=== PATIENT | female | born 1965 | race Caucasian/White ===

== ENCOUNTER 2020-10-03 18:12 | Observation (INO) | payer BC ==
[2020-10-03] MEDS ORDERED: ASPIRIN EC 81 MG TAB PO ONE (20:43)
[2020-10-03 20:47] VITALS: BMI 36.3
[2020-10-03] MEDS ORDERED: FAMOTIDINE 20 MG TAB PO SCH (21:00)
[2020-10-03] MEDS: METOPROLOL TAR 50 MG TAB PO SCH (21:00)
[2020-10-04 00:12] LABS: Absolute Lymphocytes (CBC) 2.5 K/uL (0.7-4.9); Basophils % 1.2 % (0-1.3); Hematocrit 36.5 % (36.0-45.0); Lymphocytes % 35.4 % (15.3-44.8); MPV 8.3 fL (7.6-11.3); RBC Red Blood Cell Count 4.42 M/uL (3.86-4.86)
[2020-10-04 00:34] LABS: ALT/SGPT 22 U/L (12-78); AST/SGOT 12 U/L (15-37); Albumin 3.6 g/dL (3.4-5.0); Alkaline Phosphatase 90 U/L (45-117); BUN Blood Urea Nitrogen 12 mg/dL (7-18); Bicarbonate 28 mmol/L (21-32); Bilirubin Total 0.4 mg/dL (0.2-1.0); CKMB Creatine Kinase MB < 1.0 ng/mL (0.3-3.6); Creatine Phosphokinase 86 U/L (26-192); Glucose Level 108 mg/dL (74-106); Magnesium 2.1 mg/dL (1.8-2.4); Potassium 3.7 mmol/L (3.5-5.1); Protein, Total 7.2 g/dL (6.4-8.2); Sodium Level 140 mmol/L (136-145); Troponin I < 0.02 ng/mL (0.0-0.045)
--- NOTE | 2020-10-04 03:00 | HP ---
Date of Admission: 10/03/2020 Chief Complaint: Chest pain. History Of Present Illness: This is a 55-year-old pleasant female, who came into office today with complaints of chest pain. The patient reports that about 3 weeks ago as she was trying to go to sleep, she woke up from her sleep, found her not breathing and trying to catch her breath, and then she felt like some pressure type feeling as if someone was sitting on her chest. This chest pressure type of feeling lasted for several hours and then no more symptoms until 2 days ago and in last 2 days, she is having chest pressure type of feeling again in the upper center of her chest. It is intermittent. The patient is not sure, but she thinks that this might be worse after eating. Walking does not seem to aggravate this symptom. She feels like having some shortness of breath type of feeling when she has this chest pressure. She has acid reflux 1 to 2 times a week and she takes Tums at that time with good relief. She sleeps with her head elevated and she takes her pantoprazole regularly in the morning. After I evaluated her, decision was made to admit her to the hospital and the patient agreed and arrangements were made for her to get direct admission to hospital. Allergies: DOXYCYCLINE CAUSING RASH AND ITCHING. Medications: Hydrochlorothiazide 12.5 mg daily, losartan 50 mg daily, levothyroxine 25 mcg daily, metoprolol tartrate 25 mg 2 times a day, pantoprazole 40 mg daily. Review of Systems: Cardiovascular: As mentioned above. Respiratory: As mentioned above. GI: As mentioned above. All other systems reviewed and negative. Past Medical History: Hypothyroidism, hypertension, hyperlipidemia, gastroesophageal reflux disease, anxiety, depression, breast cancer, for which she had left-sided lumpectomy and she also had radiation therapy for treatment. Past Surgical History: Left breast lumpectomy in 2012 and cholecystectomy. Family History: Father with coronary artery disease, hypertension, hyperlipidemia, and stroke. Mother with depression, hypertension, hyperlipidemia. Social History: Negative for smoking or alcohol use. Physical Examination: Vital Signs: When she came into our office today, blood pressure 182/88, pulse 72, respiratory rate 16, temperature 96.9, weight 247 pounds. General: Awake, alert, oriented, not in distress. HEENT: Head atraumatic, normocephalic. Conjunctivae nonerythematous. Sclerae white. Mouth, no thrush or edema noted. Ears/Nose, no mass, lesion, discharge noted. Neck: Supple. No JVD, lymph nodes, bruit, thyromegaly noted. Lungs: Bilateral good equal air entry. Clear to auscultation. No rhonchi. No rales. Heart: Normal heart sounds. No murmur or gallop. Abdomen: Soft. Bowel sounds normal. No guarding, rigidity, tenderness, mass, hepatosplenomegaly, distention, or bruit noted. Extremities: No leg edema. No calf tenderness. Skin: No rash, ulcer, cellulitis. Lymphatics: No lymph node enlargement in neck, supraclavicular, infraclavicular region. Neuro: No focal neurological deficit. Chest: Unremarkable. External Genitalia: Deferred. Rectal: Deferred. Laboratory Data: Chest x-ray, no acute cardiopulmonary changes. Small hiatal hernia noted. WBC 7.2, hemoglobin 12.5, platelets 296. Sodium 140, potassium 3.7, chloride 106, bicarb 28, BUN 12, creatinine 0.83, glucose 108, magnesium 2.1. Liver function tests unremarkable. TSH 2.750. Troponin less than 0.02. COVID-19 test negative. Impression: 1. Chest pain. 2. Hypertension. 3. Hyperlipidemia. 4. Gastroesophageal reflux disease. 5. Left breast cancer. 6. Hypothyroidism. Plan: Admit the patient to the hospital for further evaluation and management of this problem. The patient is admitted to the hospital as observation status. We will continue her metoprolol, but increase dose from 25 mg 2 times a day to 50 mg 2 times a day. Start the patient on aspirin 81 mg daily starting tonight. Her home medications will be continued per order and I have ordered an echocardiogram and Lexiscan stress test for tomorrow morning. Cardiology consultation was requested from Dr. Matos and I have called and discussed details with him. Starting tomorrow, I will be out of town and I have requested Dr. Matos to evaluate her tomorrow morning and if her cardiac workup comes back negative, then Dr. Matos will discharge her to go home and I will see her on outpatient basis next week and she already has that appointment. Meanwhile, we will add famotidine at nighttime. Upon discharge, the patient to take metoprolol 50 mg 2 times a day instead of 25 mg 2 times a day and this was discussed with her already. The patient was also advised to take aspirin 81 mg daily. She should continue all other previously prescribed home medication. KEY Voice ID: [id number] MTDKristen
[2020-10-04 05:14] VITALS: BP 138/81; TEMP 97.5
[2020-10-04] MEDS ORDERED: PANTOPRAZOLE 40MG TABLET PO SCH (06:30)
[2020-10-04] MEDS ORDERED: LOSARTAN POTASSIUM 50 MG TABLET PO SCH (09:00)
[2020-10-04] MEDS ORDERED: LEVOTHYROXINE SOD 0.025 MG TAB PO SCH (09:00)
[2020-10-04] MEDS: METOPROLOL TAR 50 MG TAB PO SCH (09:00)
[2020-10-04] MEDS ORDERED: hydroCHLOROthiazide 12.5 MG CAP PO SCH (09:00)
[2020-10-04] MEDS ORDERED: ASPIRIN EC 81 MG TAB PO SCH (09:00)
[2020-10-04] MEDS ORDERED: REGADENOSON 0.4 MG/5 ML SYR IV ONE (09:36)
--- NOTE | 2020-10-04 10:59 | RAD REPORT ---
EXAM DESCRIPTION: [facility] - Rest Stress Cardiac Imaging - 10/04/2020 10:49 am CLINICAL HISTORY: Chest pain. COMPARISON: None. TECHNIQUE: The patient was administered 10.8 mCi of Tc 99m Sestamibi prior to resting SPECT imaging of the heart. The patient was then administered 30.9 mCi of Tc 99m Sestamibi following exercise or ph armacologic stress. Multiplanar SPECT images were reviewed. FINDINGS: Small to moderate area of diminished radiotracer activity involves the apical left ventric ular myocardium on rest and stress images. There is uniformity of radiotracer uptake involving the remainder of the left ventricular myocardium on rest and stress images. The left ventricular ejection fraction equals 59% IMPRESSION: Small to moderate area of diminished radiotracer activity involving the apical left vent ricular myocardium which is fixed on stress and rest sequences. This could represent an infarct or ph ysiologic apical thinning. There is no evidence of stress-induced ischemia
--- NOTE | 2020-10-04 11:55 | ECHO ---
HEIGHT: 5 ft 6 in WEIGHT: 225 lb 9.6 oz DATE OF STUDY: 10/04/[address]: Tarun Polo MD 2-DIMENSIONAL: YES M.MODE: YES DOPPLER: YES COLOR FLOW: YES TDS: PORTABLE: DEFINITY: BUBBLE STUDY: DIAGNOSIS: CHEST PAIN CARDIAC HISTORY: CATHERIZATION: NO SURGERY: NO PROSTHETIC VALVE: NO PACEMAKER: NO MEASUREMENTS (cm) DIASTOLIC (NORMALS) SYSTOLIC (NORMALS) IVSd 0.8 (0.6-1.2) LA Diam 3.5 (1.9-4.0) LVEF 53% LVIDd 4.4 (3.5-5.7) LVIDs 3.2 (2.0-3.5) %FS 27% LVPWd 1.1 (0.6-1.2) Ao Diam 2.4 (2.0-3.7) 2 DIMENSIONAL ASSESSMENT: RIGHT ATRIUM: NORMAL LEFT ATRIUM: NORMAL RIGHT VENTRICLE: NORMAL LEFT VENTRICLE: NORMAL TRICUSPID VALVE: NORMAL MITRAL VALVE: NORMAL PULMONIC VALVE: NORMAL AORTIC VALVE: NORMAL PERICARDIAL EFFUSION: NONE AORTIC ROOT: NORMAL LEFT VENTRICULAR WALL MOTION: NORMAL DOPPLER/COLOR FLOW: TRACE TRICUSPID REGURGITATION. NORMAL RIGHT VENTRICULAR SYSTOLIC PRESSURE. COMMENTS: NORMAL LEFT VENTRICULAR SIZE AND FUNCTION. MILD MITRAL VALVE PROLAPSE. NO MITRAL REGURGITATION. TRACE TRICUSPID REGURGITATION. NORMAL LEFT VENTRICULAR SYSTOLIC PRSESURE. NO EFFUSION. TECHNOLOGIST: RADAMES ANDERSON
--- NOTE | 2020-10-04 11:59 | TREADPHA ---
DX: CHEST PAIN Date of Study: 10/04/2020 Ht: 5' 6 " Wt: 225 lb 9.6 oz Consulting Physician: CAMILLE MEDICATIONS: ASPIRIN, LIPITOR, COZAAR, LOPRESSOR HISTORY: HYPERTENSION, HIGH CHOLESTEROL, GERD PHYSICIAL EXAMINATION: RESTING B.P.: 130/72 RESTING H.R.: 66 RESTING EKG: NORMAL PROTOCOL: PHARMACOLOGIC EXERCISE TIME: 3:30 B.P. AT [place]AK STRESS: 151/81 IMPRESSION: LEXISCAN INJECTED. CARDIOLITE INJECTED (SEE NUCLEAR MEDICINE REPORT). NO SUPRAVENTRICULAR TACHYCARDIA. NO ARRHYTHMIA. NO CHEST PAIN. NO VENTRICULAR TACHYCARDIA. COMPLAINTS OF DIZZINESS AND SHORTNESS OF BREATH.
[2020-10-04] MEDS ORDERED: ATORVASTATIN 40 MG TAB PO SCH (21:00)
--- NOTE | 2020-10-05 08:33 | RAD REPORT ---
EXAM DESCRIPTION: [facility] And Lat (2 Views)10/03/2020 9:43 pm CLINICAL HISTORY: Chest pain COMPARISON: None. TECHNIQUE: PA and lateral Chest. FINDINGS: Normal cardiac size. Small retrocardiac opacity compatible with hiatal hernia. Pulmonary v asculature appears normal. Normal cardiomediastinal contours. Lungs are clear. Pleural spaces are michelle ar. Unremarkable soft tissues. Minimal degenerative changes in the thoracic spine. IMPRESSION: 1. Small hiatal hernia. No acute chest disease. Electronically signed by: Ansley Millan DO 10/03/2020 10:09 PM CDT Due to temporary technical issues with the PACS/Fluency reporting system, reports are being signed by the in house radiologists without review as a courtesy to insure prompt reporting. The interpreting radiologist is fully responsible for the content of the report.
--- NOTE | 2020-10-05 10:39 | EKG ---
Test Date: 2020-10-03 Test Time: 22:04:08 Heavy Equipment Engine Mechanic: RT-O MEASUREMENT RESULTS: Intervals: Rate: 65 MO: 136 QRSD: 88 QT: 432 QTc: 449 [place]: P: 37 MO: 136 QRS: 14 T: 21 INTERPRETIVE STATEMENTS: Normal sinus rhythm Cannot rule out Anterior infarct, age undetermined Abnormal ECG Compared to ECG 07/04/2008 12:12:05 Myocardial infarct finding now present Sinus arrhythmia no longer present Ventricular premature complex(es) no longer present Electronically Signed On 10-05-20 10:36:53 CDT by Chalo Matos
--- NOTE | 2020-10-05 19:58 | CON ---
Date of Consultation: 10/04/2020 Reason For Consultation: Chest pain. History Of Present Illness: Ms. Ramirez is a 55-year-old woman who has a history of obesity, hypertens ion, hypothyroidism, and gastroesophageal reflux disease. Came in with symptoms of chest pain that w rinku her from sleep. Describes that she was unable to catch her breath with some chest pressure as so mebody is sitting on her chest. Her symptoms have lasted for an hour, but are not exertional. Chest pain does not get worse with exertion. She denied any PND, orthopnea, pedal edema, palpitations, or syncope. Denied any fever, chills, or cough. She was very concerned because of her family history that is strong and she had been under significant amount of stress. She thinks she may have sleep ap padma. Past Medical History: As stated above. Also include history of breast cancer, for which she had a l eft-sided lumpectomy and radiation. Allergies: DOXYCYCLINE, WHICH GIVES HER ITCHING AND RASH. Medications: At home include hydrochlorothiazide, losartan 50 mg daily, metoprolol 50 b.i.d., pantop razole 40 mg daily, and levothyroxine 25 mcg daily. Family History: Strongly positive for heart disease, blood pressure, dyslipidemia, stroke in her fat her. Her mom had hypertension and dyslipidemia. Physical Examination: Vital Signs: Stable. She was afebrile. HEENT: Negative. Neck: Supple without any bruit, lymphadenopathy, JVD, or thyromegaly. Chest: Clear to auscultation and percussion. Cardiac: Revealed a regular rhythm and rate. No gallops or rubs. Abdomen: Benign. Extremities: Reveal no clubbing, cyanosis, or edema. Diagnostic Data: EKGs that showed possible inferior function, probably more secondary to body habitu s. Her chest x-ray was positive for a small hiatal hernia. Echocardiogram was perfectly normal. Sh e had a nuclear stress test that showed no evidence of stress-induced ischemia, possible artifact in the apex, again probably secondary to body habitus. Impression And Plan: Atypical chest pain. I think she does need to have a sleep study done to rule out sleep apnea. Symptom certainly could be related to reflux, maybe anxiety and stress, and gastrit is. Nevertheless, I am not impressed enough with her stress test or echocardiogram to keep her. I t hink she can go home whenever it is okay with Dr. Polo. I will see her in the office in the next 2 t o 4 weeks. If her symptoms persist, we will get more aggressive with her workup only because of her strong family history. Her other problems including hypertension and hypothyroidism are stable at th is point. I will discuss the case further with Dr. Polo. CAMILA/MARIA DEL ROSARIO Voice ID: [id number] Report ID: [id number]
--- NOTE | 2020-10-06 21:35 | DS ---
Date of Discharge: 10/04/2020 Disposition: Discharged to go home. Final Diagnoses: 1. Chest pain. 2. Hypertension. 3. Hyperlipidemia. 4. Gastroesophageal reflux disease. 5. Left breast cancer. 6. Hypothyroidism. Laboratory Data: Labs done during this hospitalization includes white blood cell count 7.2, hemoglobin 12.5, platelets 296. Sodium 140, potassium 3.7, chloride 106, bicarb 28, BUN 12, creatinine 0.83, glucose 108, magnesium 2.1. Liver function tests unremarkable. TSH 2.750. Troponin less than 0.02. COVID- 19 test negative and chest x-ray unremarkable. Hospital Course: This is a 55-year-old female patient, who was admitted to the hospital with complaints of chest pain. Please see dictated H and P for more information. After the patient was evaluated, she was admitted to the hospital. Her cardiac enzyme was normal. Her total cholesterol was 245, LDL was 145, triglycerides 203. After she was admitted to the hospital, she was evaluated by plastering supervisor, Dr. Matos and details were discussed with him. The patient was started on aspirin 81 mg daily and at home she takes metoprolol 25 mg 2 times a day and we increased the dose to 50 mg 2 times a day. Her electrocardiogram was reported as normal sinus rhythm, cannot rule out anterior infarct, age undetermined. The patient had echocardiogram done today, on 10/04/2020 showing normal ejection fraction of 53%, trace tricuspid regurgitation, mild mitral wall prolapse, no mitral regurgitation. No evidence of pericardial effusion. The patient had Lexiscan stress test done today, on 10/04/2020 and it showed a [id number] area of diminished radiotracer activity involving the apical left ventricular myocardium, which was fixed on stress and rest sequences. This could represent an infarct or physiologic apical thinning. There is no evidence of stress-induced ischemia. I did evaluate her today on day of discharge via tele visit that included audio and video component, and this was before we had this echocardiogram and stress test results and Dr. Matos evaluated her, and he has released her to go home from Cardiology point of view. He believes that this was artifact on the stress test and her chest pain is atypical in nature, but he will consider further workup because of the family history if she has any persistent symptoms. I did start the patient on famotidine 40 mg at bedtime for acid reflux problem. When I evaluated her via tele visit (with audio and video component) today, she did not have any complaints of any chest pain or shortness of breath and hemodynamically she was stable. Discharge Medications And Instructions: Continue all prior home medications except following changes. 1. Increase dose of metoprolol tartrate from 25 mg 2 times a day to 50 mg 2 times a day. 2. Take aspirin 81 mg 1 tablet by mouth daily with food. 3. Take atorvastatin 40 mg 1 tablet by mouth daily at bedtime. 4. Take famotidine 40 mg 1 tablet by mouth daily at bedtime. 5. Follow up at my office on 10/10/2020 and the patient already has appointment scheduled for that and prescription for atorvastatin, famotidine, and metoprolol was sent to [facility]. LISA/MARIA DEL ROSARIO Voice ID: [id number] Report ID: [id number] MTDKristen
== END 2020-10-04 11:50 | disposition home or self-care (01) ==
LOC: 4TH 20:08
PROVIDERS: ADMIT Internal Medicine; ATTEND Internal Medicine
DX: R07.9 Chest pain, unspecified (principal); I10 Essential (primary) hypertension; E78.5 Hyperlipidemia, unspecified; K21.9 Gastro-esophageal reflux disease without esophagitis; E03.9 Hypothyroidism, unspecified; E66.9 Obesity, unspecified; Z20.822 Contact with and (suspected) exposure to COVID-19; Z85.3 Personal history of malignant neoplasm of breast; Z92.3 Personal history of irradiation; F41.9 Anxiety disorder, unspecified; F32.9 Major depressive disorder, single episode, unspecified; R94.31 Abnormal electrocardiogram [ECG] [EKG]
CPT/HCPCS: 93005; 93017; 93306; 85025; 36415; 83735; 82550; 80061; 84443; 84484; 82553; 80053; 71046; 78452; U0003; J2785; A9500; G0378; G0379